=== PATIENT | female | born 1980 | race Two or more races ===

== ENCOUNTER → 2018-01-11 13:49 | Outpatient (CLI) | payer OTHER, SELFPAY ==
--- NOTE | 2018-01-11 13:53 | US_ITS ---
US OB transvaginal HISTORY: ITS.REASON: US OB TV- DATES ORDERING PHYSICIAN: Jackeline Hawk MD PATIENT AGE: 37 years COMPARISON: FINDINGS: An intrauterine gestational sac is present with a pole with a crown-rump length of 6.99cm correlating to gestational age of 13w2d. heart tones are present with an FHR of 154 bpm's. The placenta is noted forming posteriorly Adnexa: Unremarkable. IMPRESSION: Live intrauterine gestation at 13 weeks 2 days as described above. Estimated due date by ultrasound is 07/17/2018
[2018-01-11 15:16] LABS: Basophils % 0.3 % (0.1-2.0); Eosinophils # 0.2 K/mm3 (0.0-0.4); Eosinophils % 2.8 % (0.1-12.0); Hematocrit 32.3 % (37.0-47.0); Lymphocytes # 1.3 K/mm3 (0.7-4.5); Lymphocytes % 20.8 K/mm3 (10-50); Mean Corpuscular Hemoglobin 28.5 pg (27.0-31.2); Mean Corpuscular Volume 83.9 fl (81-99); Mean Platelet Volume 7.5 fl (7.4-10.4); Monocytes # 0.2 K/mm3 (0.1-1.0); Monocytes % 3.3 % (1.7-9.3); Neutrophils # 4.4 K/mm3 (1.8-7.8); Neutrophils % 72.8 % (37.0-80.0); Platelet Count 350 K/mm3 (142-424); Red Blood Count 3.85 M/mm3 (4.20-5.40); Red Cell Distribution Width 12.6 % (11.5-17.5); White Blood Count 6.1 K/mm3 (4.8-10.8)
[2018-01-18 16:04] LABS: HIV Screen 4th Generation wRfx NON-REACTIVE
[2018-01-18 16:07] LABS: Hepatitis C Antibody <0.1; Rapid Plasma Reagin Ab Titer NON-REACTIVE
[2018-01-18 16:10] LABS: Hepatitis B Surface Antigen NEGATIVE
[2018-01-18 16:17] LABS: Rubella Antibodies, IgG <0.90
[2018-02-01 11:52] LABS: Neisseria gonorrhoeae, NAA NEGATIVE
== END ==
PROVIDERS: Visit Provider Obstetrics & Gynecology
DX: O26.841 Uterine size-date discrepancy, first trimester (principal)
CPT/HCPCS: 36415; 76830; 85025; 86592; 86703; 86762; 86850; 87340; 87380; 87491; 87591; G0432

== ENCOUNTER → 2018-03-03 08:21 | Outpatient (CLI) | payer OTHER, SELFPAY ==
--- NOTE | 2018-03-03 08:25 | US_ITS ---
US OB /maternal detail: INDICATION: ITS.REASON: US OB Complete-20 wk+ Anatomy Scan ORDERING PHYSICIAN: Danyel Puente MD PATIENT AGE: 37 years TECHNIQUE: ultrasound transabdominal scanning. COMPARISON: No previous relevant studies. FINDINGS: Single viable intrauterine gestation. Breech position. Placenta: Posterior placenta grade 1. There is average amount fluid. The cervix appears satisfactory. Closed and measuring 3 cm in length. Complete survey performed and was unremarkable on the submitted images as in PACS. No discrete anomalies identified on survey imaging by technologist. Active fetus. Three-vessel cord with satisfactory umbilical cord insertion. 4- chamber heart noted. Survey of brain & ventricles unremarkable. Face and neck survey unremarkable. Diaphragm and chest views unremarkable. Abdomen: Both kidneys noted and unremarkable. Stomach noted and satisfactory. Spine: Survey of the spine satisfactory with no anomalies identified nor imaged. Both arms and legs noted. Amniotic Fluid: Adequate. Maternal adnexa: No significant findings. Measurements: Average ultrasound age 20w6d. Gestational Age 20w3d. Estimated due date by ultrasound age 1107/15/2018. Estimated weight 380 grams. 68 percentile based on established due date of 07/18/2018 BPD = 21w2d OFD = 20w6d HC = 20w2d AC = 21w2d FL = 20w4d Heart Rate = 147 Cerebellum = 20w4d Humerus = 20w0d HC/AC is 1.10 (1.09-1.26). CI is 81% (70-86%). FL/BPD is 67%. FL/AC is 21%. IMPRESSION: Single live fetus in breech presentation active. No abnormalities evident. Average ultrasound age is 20 weeks and 6 days with an estimated due date of 07/15/2018 by ultrasound. Please see above for detailed description
== END ==
PROVIDERS: Visit Provider Nurse Practitioner Obstetrics & Gynecology
DX: Z36.0 Encounter for antenatal screening for chromosomal anomalies (principal)
CPT/HCPCS: 76811

== ENCOUNTER → 2018-06-15 18:05 | Outpatient (REF) | payer OTHER, SELFPAY | LOC: LAB 18:05 | PROVIDERS: Visit Provider Obstetrics & Gynecology | DX: Z34.90 Encounter for supervision of normal pregnancy, unspecified, unspecified trimester (principal) | CPT/HCPCS: 86403 ==

== ENCOUNTER 2018-07-12 09:13 | Outpatient (CLI) | payer OTHER, SELFPAY ==
[2018-07-12 09:21] VITALS: BP 131/94; PULSE 109; RESP 20; TEMP 36.9; O2SAT 99; BMI 34.4
== END 2018-07-12 10:10 | disposition home or self-care (01) ==
LOC: OBOUT 09:19 → OB 09:19
PROVIDERS: Visit Provider Obstetrics & Gynecology
DX: O60.03 Preterm labor without delivery, third trimester (principal); O36.8130 Decreased fetal movements, third trimester, not applicable or unspecified; Z3A.39 39 weeks gestation of pregnancy
CPT/HCPCS: 59025

== ENCOUNTER 2018-07-13 01:05 | Inpatient (IN) ==
[2018-07-13 02:50] LABS: Basophils % 0.3 % (0.1-2.0); Eosinophils # 0.1 K/mm3 (0.0-0.4); Hematocrit 36.2 % (37.0-47.0); Hemoglobin 11.8 g/dL (12.2-16.2); Lymphocytes # 1.2 K/mm3 (0.7-4.5); Lymphocytes % 17.6 % (10-50); Mean Corpuscular HGB Conc 32.6 g/dL (31.8-35.4); Mean Corpuscular Hemoglobin 28.9 pg (27.0-31.2); Mean Corpuscular Volume 88.7 fl (81-99); Mean Platelet Volume 7.5 fl (7.4-10.4); Monocytes # 0.3 K/mm3 (0.1-1.0); Monocytes % 4.5 % (1.7-9.3); Neutrophils % 75.7 % (37.0-80.0); Platelet Count 310 K/mm3 (142-424); Red Blood Count 4.08 M/mm3 (4.20-5.40); Red Cell Distribution Width 14.6 % (11.5-17.5); White Blood Count 6.6 K/mm3 (4.8-10.8)
[2018-07-13 03:59] LABS: Appearance,Urine CLEAR (Clear); Bilirubin,Urine Negative (Negative); Blood, Urine 3+ (Negative); Color,Urine YELLOW (Yellow); Glucose,Urine (UA) Negative (Negative); Ketones,Urine Negative (Negative); Leukocyte Esterase,Urine TRACE (Negative); Microscopic, Urine URINE MICROSCOPIC (MICROSCOPIC); PH,Urine 6.5 (5.0-8.5); Protein,Urine TRACE (Negative); Specific Gravity, Urine 1.015 (1.005-1.030); Urobilinogen,Urine 0.2 EU/dl (0.2)
[2018-07-13 04:08] LABS: Bacteria,Urine 1+ /lpf; Mucus,Urine Trace /lpf; Squamous Epithelial Cell,Urine Occasional #/hpf (0-5)
[2018-07-13 04:15] LABS: Amphetamine/Metha Screen,Urine Negative ng/mL (<1000); Barbiturates Screen,Urine Negative ng/mL (<200); Benzodiazepines Screen,Urine Negative ng/mL (<200); Cannabinoid Screen,Urine Negative ng/mL (<50); Cocaine Screen,Urine Negative ng/mL (<300); Methadone Screen,Urine Negative ng/mL (<300); Opiate Screen,Urine Negative ng/mL (<300); Phencyclidine Screen,Urine Negative ng/mL (<25)
--- NOTE | 2018-07-13 13:28 | Progress Note ---
[facility] Anesthesia Checklist - Structural Data Admitted From: Inpatient Planned Operative Procedure/s: labor epidural Consent for Planned Operative Procedure(s) Verified: Yes - Anesthesia Plan Anesthesia Risk discussed: Yes Anesthesia Plan: Verified ASA Class: II Anesthesia Type: Epidural [facility] History I have reviewed the patient's past medical history: Yes Medical History: Denies:: Anxiety, Depression, Diabetes Mellitus Type 1, Hyperlipidemia, Hypertension Other Surgeries: No: Amputation: No Fractures: No - *Social History Educational Level: Completed High School Smoking Status: Never smoker Alcohol Intake: never Substance Use Type: denies use Occupational Status: unemployed Housing: house Household Members: significant other - Psychiatric History Expresses thoughts of harming self/others: None Suicide Plan Description: No Plan Pschychiatric History:: Denies:: Anxiety, Depression *Family Hx:: No significant family history Para: 0
--- NOTE | 2018-07-13 22:49 | History & Physical Report ---
OB - H&P: HPI Antepartum - History of Present Illness Chief complaint: contractions History of present illness: 37 yo @ 39 2 presented early am on 07/13 with regular contractions. She denied any LOF or VB and monitoring was reassuring. Cervix was 2cm dilated and she was jose c regularly/painfully, so she was admitted for labor management. Pitocin augmentation was begun later that morning, as her cervix was still 2cm many hours after admission. Amniotomy was subsequently performed with clear fluid. complicated by language barrier (Slovenian speaking only), AMA, mild anemia (11.8) and rubella non-immune status. - Labs Rubella: nonimmune GBS status: negative [facility] History I have reviewed the patient's past medical history: Yes Medical History: Reports:: Anxiety, Depression Denies:: Diabetes Mellitus Type 1, Hyperlipidemia, Hypertension, Seizures Other Surgeries: No: Amputation: No Fractures: No - *Social History Educational Level: Completed High School Smoking Status: Never smoker Alcohol Intake: never Substance Use Type: denies use Occupational Status: unemployed Housing: house Household Members: significant other - Psychiatric History Expresses thoughts of harming self/others: None Suicide Plan Description: No Plan Pschychiatric History:: Denies:: Anxiety, Depression *Family Hx:: No significant family history Para: 0 Review of Systems - Review of Systems CONSTITUTIONAL: no fever/chills HEENT: no oral lesions PULMONARY: no shortness of breath or difficulty breathing CV: no racing heart, palpitations or chest pain ABD: no abdominal pain, N/V : + contractions. No LOF or VB SKIN: no new rash or skin lesions EXT: no edema NEURO: no mental status changes PSYCH: no current anxiety/depression OTHER: normal movement Meds Home Medications Medication Instructions Recorded Confirmed Type Ferrous Sulfate 325 mg PO DAILY 07/13/18 07/13/18 History Vit Calc,Iron,Folic 1 tab PO QHS 07/13/18 07/13/18 History [ Vitamin] Allergies Allergy/AdvReac Type Severity Reaction Status Date / Time No Known Allergies Allergy Verified 07/12/18 13:14 OB - H&P: Exam - Physical Exam Vital signs: Temp Pulse Resp BP Pulse Ox 98.0 F 88 18 141/74 H 100 07/13/18 16:20 07/13/18 16:20 07/13/18 16:20 07/13/18 16:20 07/13/18 16:20 Narrative: CONSTITUTIONAL: no acute distress HEENT: mucous membranes moist PULMONARY: breathing unlabored without audible wheezes CV: no tachycardia or visible JVD; normal LE peripheral pulses ABD: soft, NT/ND, no guarding : cervix 3/50/-1, soft SKIN: no visible rash or lesions EXT: 1+ edema LEs NEURO: alert/oriented, no altered mental status PSYCH: appropriate mood and demeanor without visible anxiety/depression OB - Results - Labs Labs: Short CBC 07/13/18 Range/Units 02:30 WBC 6.6 (4.8-10.8) K/mm3 Hgb 11.8 L (12.2-16.2) g/dL Hct 36.2 L (37.0-47.0) % Plt Count 310 (142-424) K/mm3 Urine 07/13/18 Range/Units 03:27 Urine Color Yellow (Yellow) Urine Appearance Clear (Clear) Urine pH 6.5 (5.0-8.5) Ur Specific [place] 1.015 (1.005-1.030) Urine Protein Trace (Negative) Urine Glucose (UA) Negative (Negative) OB - A/P Antepartum (1) 39 weeks gestation of Current visit: Yes Status: Acute (2) Prolonged latent phase of labor Current visit: Yes Status: Acute (3) Language barrier affecting health care Problem details: berm[place]ian speaking only Current visit: No Status: Acute (4) Anemia affecting Problem details: Hgb 11.o Current visit: No Status: Acute (5) AMA (advanced maternal age) multigravida 35+ Current visit: No Status: Acute (6) Rubella non-immune status, antepartum Problem details: MMR Current visit: No Status: Acute - Additional Plan Additional Information:: Admitted for labor management Pitocin augmentation begun Patient encouraged to have epidural for pain management but expressed desire for NCB at this time Plan MMR [employer] Developer assistance for intrapartum and care
--- NOTE | 2018-07-13 23:09 | Procedure Note ---
- Delivery Note Delivery Date:: 07/13/18 Delivery Time:: 22:59 Anesthesia Type: Epidural Was labor medically induced?: No Gestational age (weeks): 39 Infant delivered prior to 39 weeks?: No Gender: Male at 1 minute: 8 at 5 minutes: 9 LAC or MLE?: LAC Delivery Procedure:: Patient complete and pushing 1.5 hours. Maternal exhaustion resulting in poor effort and stalled progress. Assessment of vertex suggestive of OP position at +1-2 station Informed consent obtained for assistance via operative vaginal delivery and patient/family agreed Patient informed of maternal/ risks with forcep delivery, as well as the alternative of c section delivery if unsuccessful forcep delivery Low closed Sousa forceps placed without complication and good position confirmed prior to pulling Vigorous male successfully delivered over 2 contractions with 2 pulls. Infant taken to warmer for assessment immediately following delivery, with terminal meconium noted, but vigorous and healthy appearing Apgars 8 & 9 No shoulder dystocia occured; nuchal cord x 1 reduced on the perineum Placenta spontaneously expressed and examined; noted to be complete/intact Vulva, vagina, and cervix inspected; partial 4th degree laceration noted, with slight amount of rectal mucosal involvment Repair was completed in standard fashion, in layers, without complication EBL: 400cc All sponge/needle/instrument counts correct at conclusion of procedure Disposition: Mom/baby stable to recovery in LDRP Laceration:: vaginal Placental Delivery Description: Spontaneous, Normal Configuration
--- NOTE | 2018-07-13 23:18 | Progress Note ---
Internal Medicine - PN: Subj *Date: 07/13/18 *Time: 23:10 Interval history: Called to room for rapid response approximately 20 minutes after completion of vaginal repair (approx. 2 hours following delivery). Per nursing staff, patient had brief episode that seemed unusual, and she developed copious amount of saliva at the edges of her mouth. She was already sleeping, having received phenergan after delivery for an episode of N/V, so responsiveness could not be accurately assessed, but a decompensation in blood pressure was noted 67/33. IV fluid was opened up for bolus and pressure bag applied. I was still on the unit and arrived on the scene to find the patient snoring and did not appear in distress (respirator or otherwise). Her head was slumped forward with tongue protruding slightly, giving concern for possible airway patency, and this was repositioned and pulseox placed. Repeat BP was immediately in 90's/60's and SaO2 98% on room air. Respiratory rate was 16-18 and pulse 104. Fundus was firm 1 cm above umbilicus and peripad contained a very scant amount of bleeding. IV bolus was continued and blood pressure cycled q 5 minutes, with stability. Pulse, RR and SaO2 also remained stable. Nasal canula O2 was positioned out of concern for patient's ability to protect airway with her solmnolence (she had also slept through epidural placement earlier today). EBL during delivery was 400cc and starting Hgb 11.8, with minimal lochia since delivery and firm fundus, but stat H/H also ordered as part of assessment. Exam Vital signs and Labs for Last 24 Hours: Temp Pulse Resp BP Pulse Ox 98.0 F 88 18 141/74 H 100 07/13/18 16:20 07/13/18 16:20 07/13/18 16:20 07/13/18 16:20 07/13/18 16:20 Laboratory Results - last 24 hr 07/13/18 02:30: WBC 6.6, RBC 4.08 L, Hgb 11.8 L, Hct 36.2 L, MCV 88.7, MCH 28.9, MCHC 32.6, RDW 14.6, Plt Count 310, MPV 7.5, Neut % (Auto) 75.7, Lymph % (Auto) 17.6, [place] % (Auto) 4.5, Eos % (Auto) 2.0, Baso % (Auto) 0.3, Neut # (Auto) 5.0, Lymph # (Auto) 1.2, [place] # (Auto) 0.3, Eos # (Auto) 0.1, Baso # (Auto) 0.0 07/13/18 02:30: Blood Type A Positive, Antibody Screen Negative 07/13/18 03:27: Urine Color Yellow, Urine Appearance Clear, Urine pH 6.5, Ur Specific [place] 1.015, Urine Protein Trace, Urine Glucose (UA) Negative, Urine Ketones Negative, Urine Blood 3+, Urine Nitrate Negative, Urine Bilirubin Negative, Urine Urobilinogen 0.2, Ur Leukocyte Esterase Trace, Urine RBC 5-10, Urine WBC 3-5, Ur Squamous Epith Cells Occasional, Urine Bacteria 1+, Urine Mucus Trace 07/13/18 03:27: Urine Opiates Screen Negative, Urine Methadone Screen Negative, Ur Barbituates Screen Negative, Ur Phencyclidine Scrn Negative, Ur Amphetamines Screen Negative, U Benzodiazepines Scrn Negative, Urine Cocaine Screen Negative, U Marijuana (THC) Screen Negative I & O for Last 24 hours: Intake & Output 07/11/18 07/12/18 07/13/18 07/14/18 11:59 11:59 11:59 11:59 Output Total 150 / 150 Balance -150 / -150 Weight 182 lb Assessment and Plan (1) 39 weeks gestation of Current visit: Yes Status: Acute Category: Medical Code(s): Z3A.39 - 39 weeks gestation of (2) Prolonged latent phase of labor Current visit: Yes Status: Acute Category: Medical Code(s): O62.0 - Primary inadequate contractions (3) Language barrier affecting health care Problem details: puerto rican speaking only Current visit: No Status: Acute Category: Social Hx Code(s): Z78.9 - Other specified health status (4) Anemia affecting Problem details: Hgb 11.o Current visit: No Status: Acute Category: Medical Code(s): O99.019 - Anemia complicating , unspecified trimester (5) AMA (advanced maternal age) multigravida 35+ Current visit: No Status: Acute Category: Medical Code(s): O09.529 - Supervision of elderly multigravida, unspecified trimester (6) Rubella non-immune status, antepartum Problem details: MMR Current visit: No Status: Acute Category: Medical Code(s): O99.89 - Other specified diseases and conditions complicating , childbirth and the puerperium; Z28.3 - Underimmunization status
[2018-07-14] LABS: Hematocrit 24.6 % (37.0-47.0)
[2018-07-14 00:06] LABS: Hemoglobin 8.4 g/dL (12.2-16.2)
[2018-07-14 06:17] LABS: Hematocrit 24.1 % (37.0-47.0)
[2018-07-14 06:23] LABS: Hemoglobin 7.7 g/dL (12.2-16.2)
[2018-07-14 16:23] LABS: Hematocrit 21.2 % (37.0-47.0); Hemoglobin 6.7 g/dL (12.2-16.2)
[2018-07-14 23:49] LABS: Hematocrit 25.5 % (37.0-47.0); Hemoglobin 8.2 g/dL (12.2-16.2)
[2018-07-15 11:46] LABS: Hematocrit 26.3 % (37.0-47.0); Hemoglobin 8.6 g/dL (12.2-16.2)
[2018-07-15 20:52] LABS: Hematocrit 30.4 % (37.0-47.0)
[2018-07-15 21:01] LABS: Hemoglobin 9.8 g/dL (12.2-16.2)
[2018-07-16 08:43] VITALS: BP 114/59
--- NOTE | 2018-07-16 13:05 | Discharge Summary ---
General - General Admission date:: 07/13/18 Discharge date: 07/16/18 HPI HPI: admitted at 39 2/7 in latent labor. Augmentation of labor with pitocin and amniotomy with subsequent forcep-assisted vaginal delivery. 4th degree laceration with uncomplicated repair. Acute on chronic anemia with drop in Hgb from 11.8 at admission to 8.4 on PPD #1, with further decrease to 7.7 and then 6.7 Patient became symptomatic with anemia and was transfused 2U PRBCs with follow up Hgb 8.6 She continued to have symptoms with anemia and was given 1 additional unit PRBCs; follow up Hgb 9.8; she is doing well and is now asymptomatic She is discharged home on PPD #3 Hospital Course Hospital Course: as documented in HPI Rhogam Administration: Not Indicated Objective Vital signs: Temp Pulse Resp BP Pulse Ox 97.8 F 100 H 20 114/59 L 99 07/16/18 08:43 07/16/18 08:43 07/16/18 08:43 07/16/18 08:43 07/15/18 20:44 Narrative: CONSTITUTIONAL: no acute distress HEENT: mucous membranes moist PULMONARY: breathing unlabored without audible wheezes CV: no tachycardia or visible JVD; normal LE peripheral pulses ABD: soft, NT/ND, no guarding : fundus firm at/below umbilicus. Perineal/vaginal repair intact SKIN: no visible rash or lesions EXT: 1+ edema LEs NEURO: alert/oriented, no altered mental status PSYCH: appropriate mood and demeanor without visible anxiety/depression Results Labs on day of discharge: Labs from last 24 hours 07/15/18 07/13/18 20:45 02:30 Hgb 9.8 L D Hct 30.4 L Blood Type A Positive Antibody Screen Negative Crossmatch (AHG) See Detail DS: Diagnosis - Discharge Diagnosis (1) 39 weeks gestation of Status: Acute (2) Language barrier affecting health care Status: Acute Problem details: albanian speaking only (3) Prolonged latent phase of labor Status: Acute (4) Forceps delivery Status: Acute (5) Anemia affecting Status: Acute Problem details: Hgb 11.o (6) AMA (advanced maternal age) multigravida 35+ Status: Acute (7) Rubella non-immune status, antepartum Status: Acute Problem details: MMR (8) Anemia due to acute blood loss Status: Acute Discharge Plan - Patient Discharge Instructions ACTIVITY: Limited activity DIET: regular diet Additional Instructions: Nothing in the vagina for 6 weeks, no heavy lifting, and no driving for [address] Follow up with Dr. Hawk in 6 weeks- call to make that appointment. Dermoplast spray Tucks pads Formula- Pieter Good Start Ibuprofen 800mg every 6 hours Tylenol 650mg every 4 hours Senokot- stool softner [place] en la vagina rachell 6 semanas, sin levantamiento pesado, y sin conducir por 2 semanas. El seguimiento con el Dr. Hawk en 6 semanas-llamada para hacer dory tyrese. Dermoplast spray Tucks pastillas frmula-[employer] buen comienzo ibuprofeno 800mg cada 6 horas Tylenol 650mg cada 4 horas Senokot-taburete softner Patient Instructions: Depression, Anemia, Hemorrhage, [facility] Post Discharge Instructions - Follow up Plan Follow up with: Jackeline Hawk MD [Staff Physician] - Disposition: Home, Self-[facility] Medications: Home Medications Medication Instructions Recorded Confirmed Type Ferrous Sulfate 325 mg PO DAILY 07/13/18 07/13/18 History Vit Calc,Iron,Folic 1 tab PO QHS 07/13/18 07/13/18 History [ Vitamin] Prescriptions/Medication Reconciliation: New Benzocaine/Menthol [Dermoplast [place] 56gm can] 1 spr TP NEEDED PRN bottle PRN Reason: Vaginal Irritation Witch Emilia [Tucks 40 Pads/Box] 1 each TP NEEDED PRN box PRN Reason: Hemorrhoids Sennosides [Senokot 8.6mg tablet] 8.6 mg PO BIDP PRN #60 tab PRN Reason: Constipation Oxycodone HCl [OxyIR 5mg tablet] 5 mg PO Q4HP PRN #24 tab PRN Reason: Moderate Pain Ibuprofen [Motrin 400mg tablet] 800 mg PO Q6HP PRN #30 tab PRN Reason: Mild To Moderate Pain Continue Vit Calc,Iron,Folic [ Vitamin] 1 tab PO QHS Ferrous Sulfate 325 mg PO DAILY
== END 2018-07-16 15:07 | disposition home or self-care (01) ==
LOC: OBOUT 01:05 → OB 01:08
PROVIDERS: ADMIT Obstetrics & Gynecology; ATTEND Obstetrics & Gynecology